=== PATIENT | male | born 1955 | race Caucasian/White ===

== ENCOUNTER 2017-09-05 05:42 | Inpatient (IN) | payer BC ==
[2017-08-31 11:08] VITALS: BMI 26.0
[~2017-09-05] VITALS: Ht 172.7 cm; Wt 77.7 kg
[2017-09-05] VITALS (12 sets, daily range): BP systolic 98–167; BP diastolic 60–86; PULSE 66–103; TEMP 36.5–37; O2SAT 92–99; Ht 172.7 cm; Wt 77.7 kg
[~2017-09-05 05:42] MED LIST: ATOR-24 PO; IBUP-1050 PO; LISI-787 PO; SYMIN160 INH; VNTHFA/IN INH
[2017-09-05] MEDS ORDERED: LACTATED RINGER'S 1000ML 1,000 ML IV SCH (06:00)
[2017-09-05 06:25] LABS: HEMATOCRIT 48.5 % (42-52); HEMOGLOBIN 16.6 g/dL (14.0-18.0); MEAN CELL VOLUME 93.6 fL (80-100); MEAN PLATELET VOLUME 8.6 fL (7.4-10.4); PLATELET COUNT 211 K/uL (130-400); RED CELL DISTRIBUTION WIDTH CV 13.2 % (11.5-14.5); RED CELL DISTRIBUTION WIDTH SD 45.4 fL (36.4-46.3); WHITE BLOOD COUNT 8.48 K/uL (4.8-10.8)
[2017-09-05 06:26] LABS: MEAN CORPUSCULAR HGB CONC 34.2 g/dl (32-36)
[2017-09-05] MEDS ORDERED: PROPOFOL IV EMULSION 10 MG/ML 20 ML VIAL ONE ×2 (06:48→12:31)
[2017-09-05] MEDS ORDERED: DEXAMETHASONE SOD INJ 4 MG/ML VIAL ONE (06:48)
[2017-09-05] MEDS ORDERED: MIDAZOLAM HCL 1 MG/ML 2ML VIAL ONE (06:48)
[2017-09-05] MEDS ORDERED: GLYCOPYRROLATE INJ 0.2 MG/ML VIAL ONE (06:48)
[2017-09-05] MEDS ORDERED: ONDANSETRON INJ 2 MG/ML 2 ML VIAL ONE (06:48)
[2017-09-05] MEDS ORDERED: LIDOCAINE HCL 2% 2 ML VIAL (20MG/ML) ONE (06:48)
[2017-09-05] MEDS ORDERED: NEOSTIGMINE METHYLSULFATE 5 MG/5 ML SYR ONE (06:48)
[2017-09-05] MEDS ORDERED: FENTANYL CITRATE INJ 50 MCG/1 ML 2 ML VIAL ONE ×2 (06:48→13:31)
[2017-09-05] MEDS ORDERED: SODIUM CHLORIDE 0.9% PF 50 ML VIAL ONE ×2 (06:56→06:57)
[2017-09-05] MEDS ORDERED: BUPIVACAINE 0.25% 30 ML VIAL ONE (06:56)
[2017-09-05] MEDS ORDERED: BUPIVACAINE LIPOSOME 1/3% 266 MG/20 ML VIAL ONE ×2 (06:56→08:14)
--- NOTE | 2017-09-05 06:58 | History & Physical Bridge Note ---
H&P Re-Evaluation Bridge Note: I have examined the patient, reviewed the History & Physical and in the interval since the performance of the History & Physical I have noted the following changes of clinical significance: No changes noted
[2017-09-05 07:02] LABS: CALCIUM 9.2 mg/dl (8.5-10.1); CREATININE 0.75 mg/dl (0.60-1.40); POTASSIUM 4.5 mmol/L (3.5-5.1)
[2017-09-05] MEDS ORDERED: FENTANYL CITRATE INJ 50 MCG/1 ML 2 ML VIAL IV PRN (07:30)
[2017-09-05] MEDS ORDERED: ONDANSETRON INJ 2 MG/ML 2 ML VIAL IV PRN ×2 (07:30→13:30)
[2017-09-05] MEDS ORDERED: EpHEDrine SULFATE INJ 50 MG/ML AMP IV PRN (07:30)
[2017-09-05] MEDS ORDERED: HYDROmorphone INJ 0.5 MG/0.5 ML SYR IV PRN (07:30)
[2017-09-05] MEDS ORDERED: ATROPINE SULFATE 0.1 MG/ML 5ML SYR IV PRN (07:30)
[2017-09-05] MEDS ORDERED: PHENYLEPHRINE 100MCG/ML 5ML SYR ONE (08:17)
[2017-09-05] MEDS ORDERED: ROCURONIUM BROMIDE 10 MG/ML 5 ML VIAL ONE ×4 (08:17→12:12)
[2017-09-05] MEDS ORDERED: CEFAZOLIN SOD 1 GM VIAL ONE (08:17)
[2017-09-05] MEDS ORDERED: PHENYLEPHRINE HCL INJ 10 MG/ML VIAL ONE (09:21)
--- NOTE | 2017-09-05 12:49 | [facility] Post Operative Brief Note ---
Immediate Operative Summary Operative Date Sep 05, 2017. Pre-Operative Diagnosis Typical carcinoid left lower lobe Post-Operative Diagnosis Same Procedure(s) Performed Robot assisted thoracoscopic left lower lobectomy Mediastinal lymph node dissection Fiberoptic bronchoscopy Surgeon Dr. Redding Free Lance Artist Surgeon(s) Judith Brown PA-C Estimated Blood Loss 100 cc's Findings Consistent with Post-Op Diagnosis Specimens Frozen section #1 - left lower lobe - out to lab at 1209 Permanent specimens (fresh) A: L8 lymph node x2 B: L9 lymph node C: L10 lymph nodes (multiple) D: Level 5 lymph node x3 E: Level 6 lymph node F: Level 7 lymph node x2 G: L11 lymph node x3 H: visceral implant I: L12 lymph node
[2017-09-05] MEDS ORDERED: METOCLOPRAMIDE HCL INJ 5 MG/ML 2 ML VIAL IV. STA (13:19)
[2017-09-05] MEDS ORDERED: METOCLOPRAMIDE HCL INJ 5 MG/ML 2 ML VIAL ONE (13:25)
[2017-09-05] MEDS ORDERED: MoRPHine SULFATE 2 MG/ML CARP IV PRN (13:30)
--- NOTE | 2017-09-05 13:44 | DIAGNOSTIC IMAGING REPORT ---
CHEST ONE VIEW PORTABLE CLINICAL HISTORY: Left lung carcinoid tumor. COMPARISON STUDY: PET/CT scan dated 07/13/2017 FINDINGS: Postsurgical changes are present on the left. There is a left-sided chest tube present. No pneumothorax is visualized. There is a small amount of subcutaneous emphysema on the left. There is a small left pleural effusion. There is left hilar prominence. There are bilateral atelectatic changes. Postsurgical changes are present within the right shoulder[ IMPRESSION: 1. Left hilar fullness 2. Small left pleural effusion 3. Left-sided chest tube. No pneumothorax identified 4. Bilateral atelectatic changes Electronically signed by: John Harry M.D. 09/05/2017 1:43 PM Dictated Date/Time: 09/05/2017 1:42 PM
--- NOTE | 2017-09-05 14:53 | OPERATIVE REPORT ---
DATE OF OPERATION: 09/05/2017 PREOPERATIVE DIAGNOSIS: Carcinoid obstructing left lower lobe bronchus. POSTOPERATIVE DIAGNOSIS: Carcinoid obstructing left lower lobe bronchus. PROCEDURES: 1. Robot-assisted thoracoscopic left lower lobectomy. 2. Mediastinal lymphadenectomy. 3. Therapeutic fiberoptic bronchoscopy at the conclusion. SURGEON: Glenn Redding M.D. THERAPEUTIC RIDING INSTRUCTOR: FILI Ignacio (Mr. Kevin was present for the entire case. He was at the patient's bedside while I was at the console. He closed the skin incisions at conclusion). ANESTHESIA: General anesthesia with endotracheal intubation using double lumen tubes. SPECIFICS OF PROCEDURE AND FINDINGS: A 62-year-old male who has poor lung function, but also has an obstructing carcinoid tumor at the origin of his left lower lobe bronchus. We felt he would be a candidate for surgery. He was discussed at our multidisciplinary thoracic conference. On 09/05/2017, the patient underwent an uncomplicated robot-assisted thoracoscopic left lower lobectomy. Our margins were clean on frozen. We did do a complete mediastinal lymphadenectomy. I also did a bronchoscopy at the end and the staple line looked fine. I suctioned out a scant amount of blood and mucus. He was extubated in the room and tolerated it well. DESCRIPTION OF PROCEDURE: The patient was brought to the operating room and laid in supine position. General anesthesia was induced. Endotracheal intubation performed with a double lumen tube and the patient was turned to the right lateral decubitus position. Left chest prepped and draped in usual sterile fashion. A 12-mm incision was made over the ninth rib just anterior to the axillary line. This was her camera port. Using the camera, we would see that we were in the pleural cavity and carbon dioxide was insufflated. We had some adhesions, but these were rather mild really. A 5-mm port was placed posteriorly 3 cm from the spinous processes. Another 8 mm port was placed in the eighth interspace between the camera port and the 5 mm port and then an 8 mm port was placed anteriorly one interspace above. Upon entering the pleural cavity, we then we would have to use our camera to assistance port, which had been placed just above the diaphragm about the mid axillary line. We then used this camera while we thoracoscopically took down the adhesions between the diaphragm and lower lobe and also the inferior pulmonary ligament, biopsied level 8 and level 9 nodes. I also dissected out the inferior and anterior as well as posterior aspect of the inferior pulmonary vein. We then placed the robotic camera back in place and then worked our way up posteriorly all the way up to the aortopulmonary window. I dissected out several level 8 nodes, 10 nodes, 11 nodes and a 7 as well as the 5 and 6. The patient had some adhesions between his lower lobe and upper lobe. This was probably due to the fact that the airway was obstructed. In fact, the airway was obstructed in the left lower lobe, never did decompres, which made it extremely difficult as the left lower lobe remained inflated. This was despite the fact we were using CO2 insufflation. At any rate, we then proceeded to dissect out the fissure from posterior and got to the superior segmental branch, which we fired a stapler across. This opened up things nicely, but the fissure between the lower lobe and upper lobe anteriorly was difficult to dissect free. I finally took the dissection along the artery anteriorly until we saw the lingular branch. We then divided the artery just distal to this. We then started firing the stapler between the upper lobe and lower lobe anteriorly after identifying the lingular vein. We also identified lingual artery and after we identified the lingular bronchus, we fired a stapler across it to complete this fissure. I then dissected out the inferior pulmonary vein. We could easily see this and fired a stapler across this. This left just the bronchus. We freed this up nicely and fired a stapler across the lower lobe bronchus just below the takeoff of the lingular bronchus. We then had difficulty getting this inflated segment out of the chest. We opened up the assistance port a bit more and then undocked the robot and used thoracoscopic instruments. We finally grasp this and pulled it through our incision that we had enlarged. This was delivered to the pathologist. We then reviewed the slides and there was no evidence of carcinoid staple line. The bronchial margin was clean. We had dissected out multiple lymph nodes. We had one area of an air leak with a small defect in the upper lobe, which we repaired with a 4-0 Prolene suture in a [id number] fashion. Really, did not have much of an air leak after the case. The 24-Wolof chest tube was directed towards the anterior thoracoscopy port and directed towards the apex. This was sutured in place with heavy silk suture. It should be noted that we used Exparel at the beginning of the case. 266 mg of Exparel were mixed with 250 mL of saline and 30 mL of 0.25% bupivacaine. This mixture was then used to provide to do an intercostal block from the second to the 11th rib. We also used it to inject each of the 5 port sites. 0 Vicryl was used to reapproximate the muscle layers of the assistance port and a 12 mm port. 4-0 Monocryl was used in running subcuticular fashion to approximate the wound edges of all the incisions. Really, did not have much of an air leak at the conclusion of the case. The patient was then turned into supine position and the double lumen tube was switched over to a single lumen tube and I performed a therapeutic bronchoscopy. The staple line looked quite good. I irrigate out a scant amount of blood and mucus. All of the airways otherwise looked quite good. There was no sign of bleeding. The patient was then extubated in the room. He tolerated it well. I attest to the content of the Intraoperative Record and any orders documented therein. Any exceptions are noted below. MTDD
[2017-09-05] MEDS ORDERED: METOCLOPRAMIDE HCL INJ 5 MG/ML 2 ML VIAL IV. SCH (15:00)
--- NOTE | 2017-09-05 15:00 | Anesthesiology Progress Note ---
Anesthesia Post Op Note Date & Time Sep 05, 2017 at 14:59 Vital Signs Pain Intensity: 4 Vital Signs Past 12 Hours Date Time Temp Pulse Resp B/P (MAP) Pulse Ox O2 Delivery O2 Flow Rate FiO2 09/05/17 14:35 36.7 84 18 143/79 (100) 92 Nasal Cannula 4.0 09/05/17 14:20 88 20 140/70 96 Nasal Cannula 4 09/05/17 14:10 36.5 80 15 115/72 95 Nasal Cannula 4 Arterial Line 09/05/17 14:00 76 13 121/68 97 Nasal Cannula 4 123/60 09/05/17 13:50 82 13 150/73 94 Nasal Cannula 4 147/67 09/05/17 13:40 83 22 138/82 97 Oxymask 10 151/70 09/05/17 13:30 85 20 157/81 97 Oxymask 10 171/79 09/05/17 13:20 100 15 174/87 98 Oxymask 10 09/05/17 13:16 36.1 105 21 169/99 100 Oxymask 10 09/05/17 06:25 36.5 68 20 164/84 97 Room Air Notes Mental Status: alert / awake / arousable, participated in evaluation Pt Amnestic to Procedure: Yes Nausea / Vomiting: adequately controlled Pain: adequately controlled Airway Patency, RR, SpO2: stable & adequate BP & HR: stable & adequate Hydration State: stable & adequate Anesthetic Complications: no major complications apparent
[2017-09-05] MEDS: KETOROLAC TROMETHAMINE 15 MG/ML VIAL IV. SCH ×2 (15:26→22:13)
[2017-09-05] MEDS: ACETAMINOPHEN IV 1,000 MG in EMPTY BAG 0 ML IV SCH ×2 (15:27→22:15)
[2017-09-05] MEDS: D5W AND 1/2NSS 1,000 ML IV SCH ×2 (15:28→23:45)
[2017-09-05] MEDS: ALBUTEROL HFA 8 GM INHALER INH PRN (18:47)
[2017-09-05] MEDS: OXYCODONE HCL IR 5 MG TAB (IMMEDIATE RELEASE) PO PRN (19:31)
[2017-09-05] MEDS: BUDESONIDE/FORMOTEROL FUMARATE 160/4.5 60 PUFFS/INHALER INH SCH (20:08)
[2017-09-05] MEDS: DOCUSATE SODIUM 100 MG CAP PO SCH (20:09)
[2017-09-05] MEDS: METOCLOPRAMIDE HCL INJ 5 MG/ML 2 ML VIAL IV. SCH (22:10)
[2017-09-06] VITALS (8 sets, daily range): BP systolic 112–162; BP diastolic 60–73; PULSE 74–86; TEMP 36.5–37.2; O2SAT 94–96
[2017-09-06] MEDS: ALBUTEROL HFA 8 GM INHALER INH PRN ×2 (02:32→10:18)
[2017-09-06] MEDS: OXYCODONE HCL IR 5 MG TAB (IMMEDIATE RELEASE) PO PRN ×3 (02:32→21:43)
[2017-09-06] MEDS: METOCLOPRAMIDE HCL INJ 5 MG/ML 2 ML VIAL IV. SCH ×3 (05:40→21:38)
[2017-09-06] MEDS: KETOROLAC TROMETHAMINE 15 MG/ML VIAL IV. SCH ×3 (06:37→22:38)
[2017-09-06] MEDS: ACETAMINOPHEN IV 1,000 MG in EMPTY BAG 0 ML IV SCH (06:37)
--- NOTE | 2017-09-06 07:06 | DIAGNOSTIC IMAGING REPORT ---
CHEST ONE VIEW PORTABLE CLINICAL HISTORY: Postop examination. A left-sided chest tube. COMPARISON STUDY: 09/05/2017 FINDINGS: The left-sided chest tube remains in similar position. There is no significant pneumothorax. There is left-sided subcutaneous emphysema. There is left lung volume loss. The right lung remains clear. There is slight status of the left heart border. Postsurgical changes involve the right shoulder.[ IMPRESSION: 1. No significant change the position of the left-sided chest tube 2. No evidence of pneumothorax 3. Left-sided subcutaneous emphysema Electronically signed by: John Harry M.D. 09/06/2017 7:05 AM Dictated Date/Time: 09/06/2017 7:04 AM
[2017-09-06 07:10] LABS: BASO % 0.1 %; BASO ABS # 0.01 K/uL (0-0.2); EOS % 0.2 %; EOS ABS # 0.03 K/uL (0-0.5); HEMATOCRIT 42.5 % (42-52); HEMOGLOBIN 14.7 g/dL (14.0-18.0); IG# 0.04 K/uL (0.00-0.02); LYMPH % 9.4 %; LYMPH ABS # 1.17 K/uL (1.2-3.4); MEAN CELL VOLUME 92.6 fL (80-100); MEAN CORPUSCULAR HGB CONC 34.6 g/dl (32-36); MEAN PLATELET VOLUME 8.9 fL (7.4-10.4); MONO ABS # 0.62 K/uL (0.11-0.59); NEUT ABS # 10.62 K/uL (1.4-6.5); PLATELET COUNT 220 K/uL (130-400); RED CELL DISTRIBUTION WIDTH CV 13.2 % (11.5-14.5); RED CELL DISTRIBUTION WIDTH SD 44.5 fL (36.4-46.3); WHITE BLOOD COUNT 12.49 K/uL (4.8-10.8)
[2017-09-06 07:42] LABS: CALCIUM 8.3 mg/dl (8.5-10.1); CREATININE 0.65 mg/dl (0.60-1.40); POTASSIUM 3.9 mmol/L (3.5-5.1)
[2017-09-06] MEDS: BUDESONIDE/FORMOTEROL FUMARATE 160/4.5 60 PUFFS/INHALER INH SCH ×2 (09:04→20:24)
[2017-09-06] MEDS: ATORVASTATIN 40 MG TAB PO SCH (09:06)
[2017-09-06] MEDS: DOCUSATE SODIUM 100 MG CAP PO SCH ×2 (09:06→20:25)
[2017-09-06] MEDS: LISINOPRIL 20 MG TAB PO SCH (09:06)
--- NOTE | 2017-09-06 09:20 | Anesthesiology Progress Note ---
Anesthesia Post Op Note Date & Time Sep 06, 2017 at 09:20 Vital Signs Pain Intensity: 7.0 Vital Signs Past 12 Hours Date Time Temp Pulse Resp B/P (MAP) Pulse Ox O2 Delivery O2 Flow Rate FiO2 09/06/17 09:11 96 Room Air 09/06/17 07:56 37.0 76 16 121/66 (84) 96 Room Air 09/06/17 07:40 Room Air 09/06/17 05:04 36.5 82 24 162/73 (102) 96 Room Air 09/06/17 01:31 37.2 74 16 121/66 (84) 94 Room Air 09/05/17 23:30 Room Air 09/05/17 23:26 37.0 84 18 142/73 (96) 96 Room Air 09/05/17 21:30 36.7 74 18 132/70 (90) 95 Room Air Notes Mental Status: alert / awake / arousable, participated in evaluation Pt Amnestic to Procedure: Yes Nausea / Vomiting: adequately controlled Pain: adequately controlled Airway Patency, RR, SpO2: stable & adequate BP & HR: stable & adequate Hydration State: stable & adequate Anesthetic Complications: no major complications apparent
[2017-09-06] MEDS: ENOXAPARIN 40 MG/0.4 ML SYR SQ SCH (10:17)
[2017-09-06] MEDS: ACETAMINOPHEN 325 MG TAB PO SCH ×3 (12:54→23:53)
[2017-09-06] MEDS ORDERED: FUROSEMIDE INJ 20 MG in SYRINGE 0 ML IV ONE (15:30)
--- NOTE | 2017-09-06 15:33 | SURGERY PROGRESS NOTE ---
DATE: 09/06/2017 Mr. Kingsley is 1 day status post robot-assisted thoracoscopic left lower lobectomy for a typical carcinoid obstructing his left lower lobe bronchus. Mr. Kingsley looks great. He is on room air. His x-ray looks quite good today with no evidence of a pneumothorax or infiltrate. He is ambulating in the hallway. He has been eating well. He does have a tiny air leak. The hemoglobin is stable at 14.7. His sodium is low at 127. We have stopped his IV fluids and then gently diurese him. His saturations are 95% on room air. We will check and see what his sodium looks like in the morning.
[2017-09-07] MEDS: ACETAMINOPHEN 325 MG TAB PO SCH ×5 (00:45→23:20)
[2017-09-07] MEDS: METOCLOPRAMIDE HCL INJ 5 MG/ML 2 ML VIAL IV. SCH ×3 (06:24→20:51)
[2017-09-07] MEDS: KETOROLAC TROMETHAMINE 15 MG/ML VIAL IV. SCH (06:24)
--- NOTE | 2017-09-07 07:19 | DIAGNOSTIC IMAGING REPORT ---
CHEST ONE VIEW PORTABLE CLINICAL HISTORY: Postop study. Left lower lobe resection. COMPARISON STUDY: 09/06/2017 FINDINGS: The cardiac images so contours remain stable. There are postsurgical changes in the left. There is left-sided volume loss. There is elevation of the left hemidiaphragm. A left-sided chest tube is again evident. There is left-sided subcutaneous emphysema. There is a small left apical pneumothorax the pleural separation of 8 mm. The right lung is generally clear. Subtle left basal airspace opacities persist. Postsurgical changes involve the right shoulder.[ IMPRESSION: Postsurgical changes on the left. 8mm left apical pneumothorax. Electronically signed by: John Harry M.D. 09/07/2017 7:18 AM Dictated Date/Time: 09/07/2017 7:17 AM
[2017-09-07 07:45] VITALS: BP 148/62; PULSE 80; TEMP 36.6; O2SAT 95
[2017-09-07] MEDS: BUDESONIDE/FORMOTEROL FUMARATE 160/4.5 60 PUFFS/INHALER INH SCH ×2 (08:44→20:48)
[2017-09-07] MEDS: DOCUSATE SODIUM 100 MG CAP PO SCH ×2 (08:44→20:48)
[2017-09-07] MEDS: ATORVASTATIN 40 MG TAB PO SCH (08:45)
[2017-09-07] MEDS: LISINOPRIL 20 MG TAB PO SCH (08:45)
[2017-09-07] MEDS: ENOXAPARIN 40 MG/0.4 ML SYR SQ SCH (08:46)
[2017-09-07 08:49] LABS: CALCIUM 8.7 mg/dl (8.5-10.1); CREATININE 0.47 mg/dl (0.60-1.40); POTASSIUM 4.2 mmol/L (3.5-5.1)
[2017-09-07] MEDS: OXYCODONE HCL IR 5 MG TAB (IMMEDIATE RELEASE) PO PRN ×2 (09:03→18:42)
[2017-09-07 13:51] VITALS: O2SAT 97
[2017-09-07 15:22] VITALS: BP 146/75; PULSE 78; TEMP 36.6; O2SAT 97
--- NOTE | 2017-09-07 17:12 | SURGERY PROGRESS NOTE ---
DATE: 09/07/2017 Mr. Kingsley seen today on 09/07/2017, 2 days after I performed a robot-assisted thoracoscopic left lower lobectomy with mediastinal lymphadenectomy for a carcinoid. Resection margins were clean and I did an extensive lymphadenectomy and these nodes, by verbal report from Dr. Fountain, showed no evidence of metastatic disease. The patient has a very tiny air leak. His drainage from his chest tubes is decreasing, although he put out a fair amount yesterday. He put out 750 mL total but it was serous. Today it decreased markedly. He is on room air. He is ambulating in the hallway. He is eating. He would like to go home, but we are going to have to wait until his air leak completely resolves. Overall, I am quite pleased with him. I am also quite pleased that we were able to remove the bronchial carcinoid.
[2017-09-07 23:13] VITALS: BP 143/74; PULSE 83; TEMP 37.1; O2SAT 94
[2017-09-08] MEDS: OXYCODONE HCL IR 5 MG TAB (IMMEDIATE RELEASE) PO PRN ×3 (01:10→20:17)
[2017-09-08] MEDS: ACETAMINOPHEN 325 MG TAB PO SCH ×4 (06:19→23:38)
[2017-09-08] MEDS: BUDESONIDE/FORMOTEROL FUMARATE 160/4.5 60 PUFFS/INHALER INH SCH ×2 (07:30→20:08)
[2017-09-08 07:34] VITALS: BP 120/76; PULSE 81; TEMP 36.7; O2SAT 94
[2017-09-08 08:07] VITALS: O2SAT 94
[2017-09-08] MEDS: DOCUSATE SODIUM 100 MG CAP PO SCH ×2 (09:58→20:15)
[2017-09-08] MEDS: LISINOPRIL 20 MG TAB PO SCH (09:58)
[2017-09-08] MEDS: ENOXAPARIN 40 MG/0.4 ML SYR SQ SCH (09:58)
[2017-09-08] MEDS: ATORVASTATIN 40 MG TAB PO SCH (09:58)
--- NOTE | 2017-09-08 10:03 | SURGERY PROGRESS NOTE ---
DATE: 09/08/2017 Mr. Kingsley seen today. He looks very good except he still has a tiny air leak. He also drained much less through his chest tube; however, he did drain a fair amount. He put out 750 the day before, was down to 450 yesterday, put out 100 over the first 8 hours. In addition, it is a very tiny air leak. 94% air and he is ambulating in the hallway. I am quite pleased with him, actually I think that overall he has done very well. Final pathology shows his lymph nodes were not involved. This should be a curative resection. Hopefully we will get him out of the hospital in the next 24-48 hours.
[2017-09-08] MEDS ORDERED: FUROSEMIDE 20 MG TAB PO STA (12:19)
[2017-09-08] MEDS: KETOROLAC TROMETHAMINE 15 MG/ML VIAL IV PRN ×2 (12:58→19:20)
[2017-09-08 15:09] VITALS: BP 115/49; PULSE 74; TEMP 36.9; O2SAT 95
[2017-09-08 23:25] VITALS: BP 153/71; PULSE 75; TEMP 36.6; O2SAT 92
[2017-09-09] VITALS: BP 148/79; PULSE 73
[2017-09-09] MEDS: KETOROLAC TROMETHAMINE 15 MG/ML VIAL IV PRN ×2 (03:43→19:46)
[2017-09-09] MEDS: ACETAMINOPHEN 325 MG TAB PO SCH ×3 (06:26→19:40)
[2017-09-09 07:19] LABS: CALCIUM 8.4 mg/dl (8.5-10.1); CREATININE 0.51 mg/dl (0.60-1.40)
[2017-09-09] MEDS: BUDESONIDE/FORMOTEROL FUMARATE 160/4.5 60 PUFFS/INHALER INH SCH ×2 (07:41→19:40)
[2017-09-09] MEDS: OXYCODONE HCL IR 5 MG TAB (IMMEDIATE RELEASE) PO PRN ×4 (09:26→22:05)
[2017-09-09] MEDS: DOCUSATE SODIUM 100 MG CAP PO SCH ×2 (09:26→22:05)
[2017-09-09] MEDS: LISINOPRIL 20 MG TAB PO SCH (09:27)
[2017-09-09] MEDS: ATORVASTATIN 40 MG TAB PO SCH (09:27)
[2017-09-09] MEDS: ENOXAPARIN 40 MG/0.4 ML SYR SQ SCH (09:28)
[2017-09-09 10:52] VITALS: BP 161/79; PULSE 74; TEMP 36.6; O2SAT 94
[2017-09-09 15:28] VITALS: BP 130/77; PULSE 77; TEMP 37; O2SAT 98
[2017-09-09] MEDS ORDERED: NURSING VERBAL MED ORDER ONE (17:30)
--- NOTE | 2017-09-09 17:52 | SURGERY PROGRESS NOTE ---
DATE: 09/09/2017 SUBJECTIVE: Mr. Kingsley is seen today. We are now postoperative day #4. He still has a tiny air leak. He looks good; however. He is ambulating in the hallway quite a bit. He ambulated 10 times yesterday. His saturations are 98% on room air. His drainage from his chest tubes is decreasing. He put out 240 mL yesterday. It is serous in nature. ASSESSMENT AND PLAN: Status post robot-assisted thoracoscopic left lower lobectomy. I am quite pleased with his progress. I had a long discussion with the patient's , Karo Kingsley, on the phone. We will explain to her that when his leak improved enough, we will remove the chest tube and let him go home, but he is not quite ready now. She understands.
[2017-09-09 23:20] VITALS: BP 192/91; PULSE 83; TEMP 36.8; O2SAT 96
[2017-09-09 23:24] VITALS: BP 174/90
[2017-09-10] VITALS (7 sets, daily range): BP systolic 148–178; BP diastolic 70–92; PULSE 73–99; TEMP 36.4–37.5; O2SAT 93–99
[2017-09-10] MEDS: ACETAMINOPHEN 325 MG TAB PO SCH ×5 (00:04→23:33)
[2017-09-10] MEDS: OXYCODONE HCL IR 5 MG TAB (IMMEDIATE RELEASE) PO PRN ×5 (04:36→23:22)
--- NOTE | 2017-09-10 07:07 | DIAGNOSTIC IMAGING REPORT ---
CHEST ONE VIEW PORTABLE CLINICAL HISTORY: Left lung carcinoid tumor status post resection COMPARISON STUDY: 09/07/2017 FINDINGS: The heart remains mildly enlarged. There is elevation left hemidiaphragm. There are increased left lung interstitial markings. The left-sided chest tube remains unchanged in position. There is an 8 mm left apical pneumothorax. There is persistent left-sided subcutaneous emphysema. The right lung remains clear. There are postsurgical changes involving the right shoulder.[ IMPRESSION: Postsurgical changes on the left. No change in the position of the left-sided chest tube. Persistent 8 mm left apical pneumothorax. Electronically signed by: John Harry M.D. 09/10/2017 7:06 AM Dictated Date/Time: 09/10/2017 7:05 AM
[2017-09-10] MEDS: DOCUSATE SODIUM 100 MG CAP PO SCH ×2 (08:04→20:50)
[2017-09-10] MEDS: LISINOPRIL 20 MG TAB PO SCH (08:04)
[2017-09-10] MEDS: ATORVASTATIN 40 MG TAB PO SCH (08:04)
[2017-09-10] MEDS: BUDESONIDE/FORMOTEROL FUMARATE 160/4.5 60 PUFFS/INHALER INH SCH ×2 (08:05→19:13)
[2017-09-10] MEDS: ENOXAPARIN 40 MG/0.4 ML SYR SQ SCH (08:05)
--- NOTE | 2017-09-10 08:14 | Surgery Progress Note ---
Subjective Date of Service: Sep 10, 2017. Pt. denies SOB. NO fevers, shakes, chills. He is ambulating in hallway and tolerating diet. No voiding difficulty. Objective Vitals Date Time Temp Pulse Resp B/P (MAP) Pulse Ox O2 Delivery O2 Flow Rate FiO2 09/10/17 07:01 36.7 76 16 157/92 (113) 99 Room Air 09/10/17 00:00 Room Air 09/10/17 00:00 73 148/79 (102) 09/09/17 23:24 174/90 (118) 09/09/17 23:20 36.8 83 17 192/91 (124) 96 Room Air 09/09/17 16:15 Room Air 09/09/17 15:28 37.0 77 18 130/77 (94) 98 Room Air 09/09/17 10:52 36.6 74 18 161/79 (106) 94 Room Air Physical Exam General: + well developed, No distress CV: + RRR Pulmonary: + accessory muscle use, + pertinent finding (BS are decreased at left base), No respiratory distress Abdomen: + non tender, + soft Extremities: No calf tenderness Neurologic: + alert & oriented x 3 Radiology CXR today shows small left apical pneumothorax Drains / Tubes chest tube (166 cc drainage last 24 hours; 70 cc last shift--small air leak noted on water seal that is larger with tube on suction ) Assessment & Plan 62 year old male s/p LLL secondary to carcinoid -chest tube to remain in place due to air leak -will not place on Heimlich valve due to drainage amount -continue coughing, deep breathing, use of IS -continue ambulation -continue pain control measures OTHER -lovenox is in place for DVT prevention
[2017-09-10] MEDS ORDERED: SOD PHOSPHATE/SOD BIPHOSPHATE ENEMA 132 ML BTL PR PRN (08:30)
[2017-09-10] MEDS: POLYETHYLENE (MIRALAX) 17 GM PACK PO SCH (10:35)
[2017-09-10] MEDS: BISACODYL 10 MG SUPP PR PRN (15:02)
[2017-09-11] MEDS: OXYCODONE HCL IR 5 MG TAB (IMMEDIATE RELEASE) PO PRN ×4 (03:09→18:05)
[2017-09-11] MEDS: ACETAMINOPHEN 325 MG TAB PO SCH ×5 (06:00→23:46)
[2017-09-11] MEDS: KETOROLAC TROMETHAMINE 15 MG/ML VIAL IV PRN (06:43)
--- NOTE | 2017-09-11 07:04 | DIAGNOSTIC IMAGING REPORT ---
CHEST ONE VIEW PORTABLE CLINICAL HISTORY: LLL postoperative evaluation COMPARISON STUDY: 09/10/2017 FINDINGS: Stable postoperative changes left hemithorax. Unchanging subcutaneous emphysematous change. Small left apical pneumothorax minimally increased in size. Maximum pleural separation currently is 1 cm. Right lung is clear. IMPRESSION: Slight increase in volume of a small left apical pneumothorax. Otherwise unchanged exam. The above report was generated using voice recognition software. It may contain grammatical, syntax or spelling errors. Electronically signed by: Tom Wilson M.D. 09/11/2017 7:03 AM Dictated Date/Time: 09/11/2017 7:02 AM
[2017-09-11 07:56] VITALS: BP 169/94; PULSE 99; TEMP 36.4; O2SAT 96
--- NOTE | 2017-09-11 08:40 | Surgery Progress Note ---
Subjective Date of Service: Sep 11, 2017. Pt. denies SOB. Main complaint is constipation. Objective Vitals Date Time Temp Pulse Resp B/P (MAP) Pulse Ox O2 Delivery O2 Flow Rate FiO2 09/11/17 07:56 36.4 99 18 169/94 (119) 96 Room Air 09/10/17 23:32 36.6 89 17 155/87 (109) 93 Room Air 09/10/17 23:20 Room Air 09/10/17 19:19 37.5 99 16 159/82 (107) 95 Room Air 09/10/17 19:00 Room Air 09/10/17 15:20 37.0 93 20 166/70 (102) 96 Room Air 09/10/17 11:10 36.9 85 20 168/74 (105) 97 Room Air 09/10/17 09:06 36.4 73 16 178/92 (120) 98 Room Air Physical Exam General: + well developed, + well nourished, No distress CV: + RRR Pulmonary: + accessory muscle use, + respiratory distress, + pertinent finding (improved air movment on let compared to yesterday ) Abdomen: + non tender, + soft, + pertinent finding (slight bloating/distention ) Extremities: No calf tenderness Neurologic: + alert & oriented x 3 Radiology CXR today shows apical pneumothorax on left Drains / Tubes chest tube (190 cc last 24 hours/50 cc last shift; air leak noted which is larger on suction ) Assessment & Plan 62 year old male s/p LLL secondary to carcinoid -chest tube to remain in place due to air leak -will not place on Heimlich valve due to drainage amount -continue coughing, deep breathing, use of IS -continue ambulation -continue pain control measures -bowel regimen is on place for constipation OTHER -lovenox is in place for DVT prevention
[2017-09-11] MEDS: BUDESONIDE/FORMOTEROL FUMARATE 160/4.5 60 PUFFS/INHALER INH SCH ×2 (09:05→20:07)
[2017-09-11] MEDS: DOCUSATE SODIUM 100 MG CAP PO SCH ×2 (09:06→20:07)
[2017-09-11] MEDS: POLYETHYLENE (MIRALAX) 17 GM PACK PO SCH (09:06)
[2017-09-11] MEDS: LISINOPRIL 20 MG TAB PO SCH (09:06)
[2017-09-11] MEDS: ATORVASTATIN 40 MG TAB PO SCH (09:06)
[2017-09-11] MEDS: ENOXAPARIN 40 MG/0.4 ML SYR SQ SCH (09:07)
[2017-09-11 15:40] VITALS: BP 103/80; PULSE 84; TEMP 36.9; O2SAT 95
[2017-09-11 23:40] VITALS: BP 194/97; PULSE 82; TEMP 36.9; O2SAT 94
[2017-09-11 23:43] VITALS: BP 166/79; PULSE 84
[2017-09-12] MEDS: OXYCODONE HCL IR 5 MG TAB (IMMEDIATE RELEASE) PO PRN ×5 (02:22→23:01)
[2017-09-12 03:55] VITALS: BP 174/79
[2017-09-12] MEDS: KETOROLAC TROMETHAMINE 15 MG/ML VIAL IV PRN ×2 (04:24→16:30)
[2017-09-12] MEDS: ACETAMINOPHEN 325 MG TAB PO SCH ×4 (05:31→23:50)
[2017-09-12 07:16] VITALS: BP 190/93; PULSE 87; TEMP 36.6; O2SAT 96
[2017-09-12] MEDS ORDERED: MAGNESIUM CITRATE 296 ML/BTL PO ONE (08:15)
[2017-09-12] MEDS ORDERED: METHYLNALTREXONE BROMIDE INJ 12 MG/0.6 ML SYR SQ ONE (08:15)
[2017-09-12] MEDS: BUDESONIDE/FORMOTEROL FUMARATE 160/4.5 60 PUFFS/INHALER INH SCH ×2 (08:39→20:42)
[2017-09-12] MEDS: DOCUSATE SODIUM 100 MG CAP PO SCH ×2 (08:39→20:42)
[2017-09-12] MEDS: ATORVASTATIN 40 MG TAB PO SCH (08:41)
[2017-09-12] MEDS: LISINOPRIL 20 MG TAB PO SCH (08:41)
[2017-09-12] MEDS: POLYETHYLENE (MIRALAX) 17 GM PACK PO SCH (08:42)
[2017-09-12] MEDS: ENOXAPARIN 40 MG/0.4 ML SYR SQ SCH (08:43)
--- NOTE | 2017-09-12 09:00 | Surgery Progress Note ---
Subjective Date of Service: Sep 12, 2017. Pt. notes discomfort from chest tube as well as constipation. Objective Vitals Date Time Temp Pulse Resp B/P (MAP) Pulse Ox O2 Delivery O2 Flow Rate FiO2 09/12/17 07:16 36.6 87 18 190/93 (125) 96 Room Air 09/12/17 03:55 174/79 (110) 09/11/17 23:43 84 166/79 (108) 09/11/17 23:40 36.9 82 18 194/97 (129) 94 Room Air 09/11/17 23:40 94 Room Air 09/11/17 16:00 Room Air 09/11/17 15:40 36.9 84 17 103/80 (88) 95 Room Air Physical Exam General: + well developed, + well nourished, No distress Pulmonary: + pertinent finding (BS are slightly decreased on left.), No accessory muscle use, No respiratory distress Additional Notes: small amount of crepitus noted near chest tube insertion site Drains / Tubes chest tube (155 cc last 24 hours/ 30 last shift--no air leak on suction or water seal ) Assessment & Plan 62 year old male s/p LLL secondary to carcinoid -chest tube to remain in place another 24 hours: -will repeat CXR in am with the possibility of removing it -continue coughing, deep breathing, use of IS -continue ambulation -continue pain control measures -bowel regimen is on place for constipation: -add mag citrate -will give 1 x dose of relistor OTHER -lovenox is in place for DVT prevention
[2017-09-12 15:27] VITALS: BP 170/77; PULSE 94; TEMP 36.4; O2SAT 96
[2017-09-12 16:20] VITALS: BP 140/75; PULSE 87
[2017-09-12 22:53] VITALS: BP 196/89; PULSE 83; TEMP 36.9; O2SAT 96
[2017-09-13 00:28] VITALS: BP 162/77
[2017-09-13] MEDS: BISACODYL 10 MG SUPP PR PRN (03:01)
[2017-09-13] MEDS: OXYCODONE HCL IR 5 MG TAB (IMMEDIATE RELEASE) PO PRN ×2 (03:01→07:02)
[2017-09-13] MEDS: ACETAMINOPHEN 325 MG TAB PO SCH (06:36)
--- NOTE | 2017-09-13 07:10 | DIAGNOSTIC IMAGING REPORT ---
CHEST ONE VIEW PORTABLE CLINICAL HISTORY: Postop left lower lobe resection. COMPARISON STUDY: 09/11/2017 FINDINGS: The cardiac and mediastinal contours remain stable. There is elevation left hemidiaphragm. The left-sided chest tube remains unchanged in position. There is left-sided subcutaneous emphysema. There is been interval decrease in the size of left apical pneumothorax which has occurred pleural separation of 3 mm. Slightly prominent left lung interstitial markings appear slightly improved.[ IMPRESSION: Interval decrease in the size of left apical pneumothorax which has a current pleural separation of 3 mm. Electronically signed by: John Harry M.D. 09/13/2017 7:09 AM Dictated Date/Time: 09/13/2017 7:08 AM
[2017-09-13 07:35] VITALS: BP 164/86; PULSE 88; TEMP 36.8; O2SAT 95
[2017-09-13] MEDS: KETOROLAC TROMETHAMINE 15 MG/ML VIAL IV PRN (08:25)
[2017-09-13] MEDS: BUDESONIDE/FORMOTEROL FUMARATE 160/4.5 60 PUFFS/INHALER INH SCH (08:26)
[2017-09-13] MEDS: POLYETHYLENE (MIRALAX) 17 GM PACK PO SCH (08:26)
[2017-09-13] MEDS: ATORVASTATIN 40 MG TAB PO SCH (08:26)
[2017-09-13] MEDS: LISINOPRIL 20 MG TAB PO SCH (08:26)
[2017-09-13] MEDS: DOCUSATE SODIUM 100 MG CAP PO SCH (08:26)
[2017-09-13] MEDS: ENOXAPARIN 40 MG/0.4 ML SYR SQ SCH (08:27)
[2017-09-13] MEDS ORDERED: CLC100 PO (08:32)
[2017-09-13] MEDS ORDERED: MRLP17 PO (08:32)
[2017-09-13] MEDS ORDERED: ACET-1047 PO (08:32)
[2017-09-13] MEDS ORDERED: RXC5 PO (08:32)
--- NOTE | 2017-09-13 08:36 | Discharge Instructions ---
Discharge Instructions Date of Service Sep 13, 2017. Admission Reason for Admission: Left Lung Carcinoid Tumor Discharge Discharge Diagnosis / Problem: Left Lung Carcinoid Tumor Discharge Goals Goal(s): Improve disease control Activity Recommendations Activity Limitations: as noted below Lifting Limitations: none Shower/Bathe: may shower/bathe in [address] drive until cleared to do so by Dr. Redding. 2. Do not drive if taking oxycodone. 3. Do not fly until cleared to do so by Dr. Redding. . Instructions / Follow-Up Instructions / Follow-Up 1. You may remove dressings on Tuesday, September 16, 2017, and shower thereafter. No tub baths. 2. Office appointment with Dr. Redding in 1 week. Office will call you with date and time of appointment. Go to hospital 1 hour before appointment to have a chest x-ray taken. Current Hospital Diet Patient's current hospital diet: Regular Diet Discharge Diet Recommended Diet: Regular Diet Procedures Procedures Performed: Robot assisted thoracoscopic left lower lobectomy Mediastinal lymph node dissection Fiberoptic bronchoscopy Pending Studies Studies pending at discharge: no Medical Emergencies . Who to Call and When: Medical Emergencies: If at any time you feel your situation is an emergency, please call 911 immediately. . Non-Emergent Contact Non-Emergency issues call your: Surgeon Call Non-Emergent contact if: you have a fever, your pain is not controlled, wound has increased drainage . "Provider Documentation" section prepared by Jason Brown. .
--- NOTE | 2017-09-13 08:42 | DIAGNOSTIC IMAGING REPORT ---
SINGLE VIEW CHEST CLINICAL HISTORY: Status post chest tube removal. Left-sided pulmonary resection. FINDINGS: An AP, portable, upright chest radiograph is compared to study performed earlier the same day 09/13/2017 and correlated with PET/CT dated 07/13/2017. The examination is degraded by portable technique and apical lordotic positioning. The heart is top normal for projection and there is atherosclerotic calcification of the thoracic aorta. The left-sided chest tube has been removed. There is volume loss from left-sided pulmonary resection with elevation of left hemidiaphragm. Trace pleural fluid is noted at both lung bases and there is left basilar atelectasis. No airspace consolidation is seen typical for pneumonia. There is a trace residual left apical pneumothorax. The skeletal structures appear osteopenic. The bony thorax is grossly intact. A right shoulder arthroplasty is in place. Simultaneous emphysema is noted in the left lower neck and the left chest wall. IMPRESSION: 1. The left-sided chest tube has been removed. 2. A trace left apical pneumothorax persists. There is no enlarging pneumothorax status post chest tube removal. 3. There is volume loss from left-sided pulmonary resection. 4. Trace pleural fluid is present at both lung bases. Electronically signed by: Cordell Luther M.D. 09/13/2017 8:27 AM Dictated Date/Time: 09/13/2017 8:25 AM
[2017-09-13 08:55] VITALS: BP 164/86; PULSE 88; TEMP 36.8; O2SAT 95
[2017-09-13 09:00] VITALS: O2SAT 95
--- NOTE | 2017-09-21 08:30 | DISCHARGE SUMMARY ---
DISCHARGE DIAGNOSES: 1. Typical carcinoid tumor, left lower lobe. 2. Chronic obstructive pulmonary disease. 3. History of cigarette smoking. HOSPITAL COURSE: Aubrey Kingsley is a very nice 62-year-old male who was found to have a carcinoid tumor obstructing his left lower lobe. He had poor lung function, although he quit smoking years ago. We had multiple discussions about this in our multidisciplinary conferences as well as in the office, and we elected to proceed with a resection. On 09/05/2017, the patient underwent an uncomplicated robot-assisted thoracoscopic left lower lobectomy with mediastinal lymph node dissection. He did very well, but he had a small air leak. It really was not large at all. He did much better than I had anticipated. He was ambulating in the hallway and got down to room air very quickly. He tolerated the procedure well but had an air leak which actually was quite small but persistent. By postop day 7, it stopped. On postop day 8, we removed his chest tube and discharged him. He looked quite good upon discharge. His final diagnosis was atypical carcinoid. It was obstructing the left lower lobe bronchus. We did get clean resection margins. Multiple lymph nodes were negative for metastatic disease. All in all, I was quite happy. I will see him back in the office next week with an x-ray.
== END 2017-09-13 12:00 | disposition home or self-care (01) | DRG 164 ==
LOC: C.ACU 05:42 → C.MSW 13:22 → ENRESERV 14:03
PROVIDERS: ADMIT Surgery; ATTEND Surgery
PROC: 0BT Respiratory System, Resection (ICD-10-PCS; principal; 2017-09-05 07:30)
PROC: 0BQ Respiratory System, Repair (ICD-10-PCS; principal; 2017-09-05 07:30)
PROC: 0W9B30Z Drainage of Left Pleural Cavity with Drainage Device, Percutaneous Approach (ICD-10-PCS; principal; 2017-09-05 07:30)
PROC: 8E0W4CZ Robotic Assisted Procedure of Trunk Region, Percutaneous Endoscopic Approach (ICD-10-PCS; principal; 2017-09-05 07:30)
PROC: 07T74ZZ Resection of Thorax Lymphatic, Percutaneous Endoscopic Approach (ICD-10-PCS; principal; 2017-09-05 07:30)
DX: D3A.090 Benign carcinoid tumor of the bronchus and lung (principal); J93.82 Other air leak; E22.2 Syndrome of inappropriate secretion of antidiuretic hormone; J98.4 Other disorders of lung; K59.00 Constipation, unspecified; J44.9 Chronic obstructive pulmonary disease, unspecified; I10 Essential (primary) hypertension; Z51.81 Encounter for therapeutic drug level monitoring; Z79.899 Other long term (current) drug therapy; Z87.891 Personal history of nicotine dependence; Z82.49 Family history of ischemic heart disease and other diseases of the circulatory system; Z88.8 Allergy status to other drugs, medicaments and biological substances